=== PATIENT | female | born 1960 | race Caucasian/White ===

== ENCOUNTER 2017-07-29 10:10 | Emergency (ER) | payer OTHER ==
[2017-07-29 11:37] LABS: BASO % 0.5 % (0.0-1.0); EOS # 0.2 10^3/uL (0.0-0.50); EOS % 3.1 % (0.0-3.0); IMMATURE GRANULOCYTE % 0.2 % (0-3.0); LYMPH # 2.3 10^3/uL (1.5-4.5); LYMPH % 35.1 % (24.0-44.0); MEAN CORPUSCULAR HEMOGLOBIN 29.3 pg (27.0-33.0); MEAN CORPUSCULAR HGB CONC 33.3 g/dl (32.0-36.5); MEAN CORPUSCULAR VOLUME 87.9 fl (80.0-96.0); MONO # 0.5 10^3/uL (0.0-0.8); MONO % 7.8 % (0.0-5.0); NEUTROPHILS # 3.5 10^3/uL (1.8-7.7); NEUTROPHILS % 53.3 % (36.0-66.0); PLATELET COUNT, AUTOMATED 227 10^3/uL (150-450); RED BLOOD COUNT 4.78 10^6/uL (4.00-5.40); RED CELL DISTRIBUTION WIDTH 12.5 % (11.5-14.5); WHITE BLOOD COUNT 6.5 10^3/uL (4.0-10.0)
[2017-07-29 11:57] LABS: PARTIAL THROMBOPLASTIN TIME 27.7 SECONDS (26.8-37.9); PROTHROMBIN TIME 12.2 SECONDS (12.4-14.5)
[2017-07-29 12:00] LABS: ANION GAP 6 MEQ/L (8-16); BLOOD UREA NITROGEN 17 MG/DL (7-18); CALCIUM LEVEL 9.4 MG/DL (8.5-10.1); CARBON DIOXIDE LEVEL 26 MEQ/L (21-32); CHLORIDE LEVEL 108 MEQ/L (98-107); CK-MB VALUE MASS 1.1 NG/ML (<3.6); CPK CREATINE PHOSPHOKINASE 115 U/L (26-192); GLOMERULAR FILTRATION RATE > 60.0 (>51); GLUCOSE, FASTING 95 MG/DL (70-100); MB/CK RELATIVE INDEX 0.95 (< OR =4); SODIUM LEVEL 140 MEQ/L (136-145); TROPONIN I < 0.02 NG/ML (< 0.10)
[2017-07-29] MEDS: NS 500 ML IV (12:22)
[2017-07-29] MEDS: KETOROLAC 30 MG/ML VIAL (J1885) IV (14:24)
[2017-07-29] MEDS: FIORICET TAB PO (14:25)
== END 2017-07-29 15:10 | disposition home or self-care (01) ==
LOC: M ED 10:10
DX: R20.0 Anesthesia of skin (principal); R51 Headache; R29.810 Facial weakness; E78.5 Hyperlipidemia, unspecified; Z82.3 Family history of stroke
CPT/HCPCS: J1885

== ENCOUNTER → 2018-07-07 | Outpatient (CLI) | payer OTHER ==
[~2018-07-07] MED LIST: ASPI81TA85 PO; FIORCAP3 PO; MULT200T7 PO; PROBCAP4 PO; SING10TA32 PO
--- NOTE | 2018-07-07 18:00 | REPMRS ---
Patient History The patient states she has not had a clinical breast exam in over a year. Patient is postmenopausal and is nulliparous. Family history of breast cancer at age 45 in maternal aunt, breast cancer at age 65 in paternal grandmother, prostate cancer at age 45 in father. No Hormone Replacement Therapy Digital Mammo Screening Bilat: July 07, 2018 - Exam #: [id number] Bilateral CC and MLO view(s) were taken. Technologist: Lucretia Carrillo, Technologist Prior study comparison: December 01, 2016, bilateral digital mammo screening bilat, performed at [facility]. October 04, 2014, bilateral digital woman screen mammo, performed at [facility]. July 25, 2012, bilateral digital woman screen mammo, performed at [facility]. FINDINGS: There are scattered fibroglandular densities. There is a moderate amount of residual fibroglandular tissue which is fairly symmetric. There is no interval development of dominant mass, architectural distortion, or clustered microcalcification typical of malignancy. There has been no change in the appearance of the mammogram from the prior studies. Assessment: BI-RADS/ACR category 1 mammogram. Negative Mammogram. Recommendation Breast MRI of both breasts in 6 months. Routine screening mammogram of both breasts in 1 year (for women over age 40). This patient's Lifetime Breast Cancer RIsk is estimated at 20.1 %. Annual screening Breast MRI scanniing is recommended for patient's whose lifetime risk assessment is over 20%. This mammogram was interpreted with the aid of an FDA-approved computer-aided dectection system. Electronically Signed By: Akin Hackett MD 07/07/18 1800
== END ==
LOC: M RAD 15:50
PROVIDERS: ATTEND Family Medicine
DX: Z12.31 Encounter for screening mammogram for malignant neoplasm of breast (principal)

== ENCOUNTER → 2018-12-05 | Outpatient (REF) | payer OTHER | LOC: M LAB REF 11:31 | PROVIDERS: ATTEND Physician Assistant | DX: N39.0 Urinary tract infection, site not specified (principal) ==

== ENCOUNTER → 2020-04-25 | Outpatient (CLI) | payer OTHER ==
[~2020-04-25] MED LIST changes: -ASPI81TA85 PO; +ASPI81TA86 PO; +ISOVUE-370 76% 100ML VIAL As Ordered ONE
--- NOTE | 2020-04-25 16:42 | REPVR ---
PROCEDURE INFORMATION: Exam: CT Neck With Contrast Exam date and time: 04/25/2020 4:18 PM Age: 59 years old Clinical indication: Mass, lump, or swelling in neck; Additional info: Lt side submandibular swelling ? stone TECHNIQUE: Imaging protocol: Computed tomography images of the neck with intravenous contrast. Radiation optimization: All CT scans at this facility use at least one of these dose optimization techniques: automated exposure control; mA and/or kV adjustment per patient size (includes targeted exams where dose is matched to clinical indication); or iterative reconstruction. Contrast material: ISOVUE 370; Contrast volume: 75 ml; Contrast route: INTRAVENOUS (IV); COMPARISON: CT C-SPINE W/O CONTRAST - OUTSIDE PRIOR 01/23/2016 2:05 PM FINDINGS: Nasopharynx: Unremarkable. Oropharynx: Unremarkable. No significant tonsillar enlargement. Hypopharynx: Unremarkable. Larynx: Unremarkable. Normal epiglottis. Retropharyngeal space: Unremarkable. Submandibular/Parotid glands: There is a 9 mm calculus in the course of left submandibular duct. The left submandibular duct is slightly increased in size and heterogenous with minimal fat stranding. Thyroid: 2 cm heterogenous nodule in the right thyroid lobe. Lymph nodes: Unremarkable. No lymphadenopathy. Trachea: Visualized trachea is unremarkable. Lungs: Unremarkable as visualized. Bones/joints: Unremarkable. No acute fracture. Soft tissues: Unremarkable. No significant soft tissue swelling. IMPRESSION: Calculus measuring 9 mm in the left submandibular duct with mild enlargement of the left submandibular gland and fat stranding. Findings suggesting superimposed inflammation/infection. Nodule in the right thyroid gland measuring 2 cm. Nonemergent ultrasound can be obtained for further evaluation. COMMENTS: Consistent with the [employer]'s Incidental Findings Committee white paper (J Am Dre Radiol 2015): In patients aged 35 years and older with an incidental thyroid nodule equal to or greater than 1.[address], MRI or extrathyroidal US, further evaluation with dedicated thyroid US is recommended for patients with normal life expectancy and without comorbidities. For smaller nodules without suspicious features, no further evaluation or follow up is recommended. Electronically signed by: Joe Delgado On 04/25/2020 16:42:12 PM
== END ==
LOC: M RAD 15:50
PROVIDERS: ATTEND Family Medicine
DX: K11.5 Sialolithiasis (principal); E04.2 Nontoxic multinodular goiter
CPT/HCPCS: 70491; Q9967

== ENCOUNTER → 2020-04-29 | Outpatient (CLI) | payer OTHER ==
[~2020-04-29] MED LIST changes: -ISOVUE-370 76% 100ML VIAL As Ordered ONE
--- NOTE | 2020-04-29 12:15 | REP ---
INDICATION: nontoxic single thyroid nodule. COMPARISON: CT 04/25/2020. TECHNIQUE: Real-time sonographic evaluation of thyroid performed. FINDINGS: Right lobe of the thyroid is mildly larger than left. Right lobe measures 5.1 x 2.2 x 1.7 cm and left lobe 4.1 x 1.6 x 1.4 cm. In the mid right lobe there is a solid nodule 1.4 x 1.8 x 1.7 cm. This is heterogeneous and slightly increased in echotexture. Two subcentimeter nodules are seen in the mid left lobe measuring 5 x 3 x 4 mm and 7 x 4 x 7 mm. IMPRESSION: Solid nodule right lobe of thyroid maximum diameter 1.8 cm. According to TI-RADS criteria this is a TR 3 lesion, and follow-up ultrasound is recommended in 6 months. <Electronically signed by Armani Fernández > 04/29/20 1215
== END ==
LOC: M RAD 11:38
PROVIDERS: ATTEND Specialist
DX: E04.1 Nontoxic single thyroid nodule (principal)

== ENCOUNTER → 2020-06-04 | Outpatient (CLI) | payer OTHER ==
[~2020-06-04] MED LIST changes: +B-12100021 PO; +CLAR5TAB11 PO; +CLIN300C6; +D31000TA2 PO; +LIDOCAINE 1% MDV 20ML VIAL As Ordered ONE; +SODIUM BICARBONATE 8.4% INJ 50MEQ 50 ML VIAL As Ordered ONE
[2020-06-04 11:00] VITALS: BP 128/76
--- NOTE | 2020-06-04 13:23 | REP ---
INDICATION: RT THYROID NODULE. COMPARISON: None. TECHNIQUE: The procedure was performed by ANIKA Alvarez, under the direct supervision of Dr. Fernández. The risks and benefits of the procedure were explained to the patient and an informed consent was obtained both verbally and written. Directly prior to the start of the procedure a formal time-out was completed in the procedure room. The right thyroid nodule was localized using ultrasound guidance. The skin was prepped and draped in a sterile fashion. Three mL of buffered lidocaine was used as a local anesthetic. Using ultrasound guidance a 4 fine needle aspirations were obtained using 25 gauge needles. FINDINGS: The patient tolerated the procedure well and there were no immediate complications. After the appropriate amount of monitored convalescence the patient was discharged from the department. IMPRESSION: Ultrasound-guided right thyroid nodule fine needle aspiration. <Electronically signed by Estela Lyons > 06/04/20 1303 <Electronically signed by Armani Fernández > 06/04/20 1324
== END ==
LOC: M IRPRO 09:52
PROVIDERS: ATTEND Specialist
DX: E04.1 Nontoxic single thyroid nodule (principal)

== ENCOUNTER 2020-07-16 10:31 | Day surgery (SDC) | payer OTHER ==
[~2020-07-16] VITALS: Ht 163.8 cm; Wt 84.1 kg
[~2020-07-16 10:31] MED LIST changes: +B COCAP4 PO; +CALC0.009 TOP; +CLOB5CR TOP; +CVS1CAP2 PO; +ESTR62CR VG; +IBUP80TA PO; -LIDOCAINE 1% MDV 20ML VIAL As Ordered ONE; +LIDOCAINE 2% 100MG/5ML SDV (FOR ANES.) As Ordered ONE; +LR 1,000 ML IV ONE; +MIDAZOLAM INJ 2MG/2ML VIAL (J2250 PER 1MG) As Ordered ONE; +MUCI30TA5 PO; +ROCURONIUM BROMIDE 50 MG/5 ML VIAL As Ordered ONE; -SODIUM BICARBONATE 8.4% INJ 50MEQ 50 ML VIAL As Ordered ONE; +fentaNYL 100 MCG/2 ML INJECTION (J3010) As Ordered ONE; +propofoL 200 MG/20 ML VIAL As Ordered ONE
[2020-07-16] MEDS ORDERED: LIDOCAINE W/EPINEPHRINE 1% 20ML VIAL As Ordered ONE (12:17)
[2020-07-16] MEDS ORDERED: ePHEDrine SULFATE 25 MG/5 ML(5MG/ML) SYRINGE As Ordered ONE (12:53)
[2020-07-16] MEDS ORDERED: ACETAMINOPHEN 1000MG 100ML IV BTL (OFIRMEV) (J0131 PER 10MG) As Ordered ONE (13:08)
[2020-07-16] MEDS ORDERED: ONDANSETRON 4MG/2ML VIAL As Ordered ONE (13:10)
[2020-07-16] MEDS ORDERED: METOCLOPRAMIDE INJ 10MG/2ML VIAL (J2765 PER 1) As Ordered ONE (13:10)
[2020-07-16] MEDS ORDERED: SUGAMMADEX SODIUM 500 MG/5 ML VIAL (BRIDION) As Ordered ONE (13:12)
[2020-07-16] MEDS ORDERED: fentaNYL 100 MCG/2 ML INJECTION (J3010) As Ordered ONE (13:20)
[2020-07-16] MEDS ORDERED: BACITRACIN OINTMENT 30GM TUBE As Ordered ONE (13:36)
[2020-07-16] MEDS ORDERED: ACET1TAB16 PO (13:41)
[2020-07-16] MEDS ORDERED: oxyCODONE 5MG TAB PO PRN (14:05)
[2020-07-16] MEDS ORDERED: IBUPROFEN 800 MG TAB PO PRN (14:05)
[2020-07-16] MEDS ORDERED: PERCOCET 5MG/325MG TAB PO PRN (14:05)
[2020-07-16] MEDS ORDERED: fentaNYL 100 MCG/2 ML INJECTION (J3010) IV PRN (14:05)
[2020-07-16] MEDS ORDERED: LR 1,000 ML IV SCH (14:05)
[2020-07-16] MEDS ORDERED: ONDANSETRON 4MG/2ML VIAL IV PRN (14:05)
[2020-07-16 17:05] VITALS: BP 150/77
--- NOTE | 2020-07-16 20:35 | ECGEPIP ---
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
--- NOTE | 2020-07-17 13:53 | RO ---
OPERATIVE NOTE DATE OF OPERATION: 07/16/2020 PREOPERATIVE DIAGNOSIS: Chronic left submandibular sialadenitis. POSTOPERATIVE DIAGNOSIS: Chronic left submandibular sialadenitis. PROCEDURE: Left submandibular gland resection. SURGEON: Albin Atrhur MD ASSISTANTS: Sarmad Olmos MD, NOE Davis FINDINGS: There were stones which were removed at the time of the surgery. ANESTHESIA: General. DESCRIPTION OF PROCEDURE: Under general anesthesia with the patient intubated, the patient was prepped and draped in the usual manner. I marked out the incision beneath the mandible. I divided skin and subcutaneous tissues and platysma. I then went down to the submandibular gland inferiorly and elevated the tissues out of the submandibular gland. There was a lot of scarring, so using sharp and blunt dissection, I dissected around the gland inferiorly. I used the Harmonic scalpel. I the gland from the facial artery and then I divided the branch which goes from the facial artery to the gland. Then I dissected around the gland identifying the mylohyoid muscle. Posteriorly I could feel the stones. I made an incision and removed the stones. I then went completely around. I identified the lingual nerve. I went distal to this. It was all scar tissue in this area. I divided the tissues with the Harmonic scalpel. Then I put a clamp at the area of the submandibular duct. This was tied off with 3-0 silk. The area was irrigated. There was no bleeding. Less than 20 mL estimated blood loss. I put Surgicel in the wound and closed the wound with 4-0 Vicryl and 5-0 nylon. The patient was extubated and transferred to recovery room in excellent condition. %%CCLIST%%
== END 2020-07-16 17:05 | disposition home or self-care (01) ==
LOC: M SDC 10:31
PROVIDERS: ATTEND Specialist
DX: K11.23 Chronic sialoadenitis (principal); K21.9 Gastro-esophageal reflux disease without esophagitis; Z79.899 Other long term (current) drug therapy; Z91.018 Allergy to other foods; Z88.1 Allergy status to other antibiotic agents; Z91.013 Allergy to seafood
CPT/HCPCS: 42440; 88307; 93005; J0131; J2250; J2405; J2765; J3010

== ENCOUNTER → 2020-08-01 | Outpatient (REF) | payer OTHER ==
[~2020-08-01] MED LIST changes: +ACET1TAB16 PO; -LIDOCAINE 2% 100MG/5ML SDV (FOR ANES.) As Ordered ONE; -LR 1,000 ML IV ONE; -MIDAZOLAM INJ 2MG/2ML VIAL (J2250 PER 1MG) As Ordered ONE; -ROCURONIUM BROMIDE 50 MG/5 ML VIAL As Ordered ONE; -fentaNYL 100 MCG/2 ML INJECTION (J3010) As Ordered ONE; -propofoL 200 MG/20 ML VIAL As Ordered ONE
[2020-08-01 20:02] LABS: CLOSTRIDIUM DIFFICILE PCR POSITIVE (NEGATIVE)
== END ==
LOC: M LAB REF 19:05
PROVIDERS: ATTEND Specialist
DX: R19.7 Diarrhea, unspecified (principal)

== ENCOUNTER → 2020-11-07 | Outpatient (CLI) | payer OTHER ==
--- NOTE | 2020-11-07 13:13 | REP ---
INDICATION: GOITER. COMPARISON: 04/29/2020 TECHNIQUE: Multiple ultrasonographic images of the thyroid. FINDINGS: The thyroid right lobe measures 4.7 x 2.8 x 1.9 cm. Left lobe measures 4.0 x 1.5 x 1.5 cm. The thyroid isthmus measures 3 mm thickness. The thyroid gland is normal size and not significantly changed. Right lobe: In the lower pole there is a solid nodule measuring 2.4 x 1.6 x 1.9 cm, not significantly changed. Left lobe: There are 2 solid nodules in the lower pole as previously. One nodule measures 6 x 4 x 4 mm. The other nodule measures 7 x 3 x 5 mm. These have not significantly changed in size. The thyroid parenchyma is otherwise mildly heterogeneous, unchanged. IMPRESSION: There is no significant interval change. <Electronically signed by Armani Jain > 11/07/20 7022
== END ==
LOC: M RAD 12:16
PROVIDERS: ATTEND Specialist
DX: E04.1 Nontoxic single thyroid nodule (principal)

== ENCOUNTER → 2022-07-03 | Outpatient (CLI) | payer OTHER ==
[~2022-07-03] MED LIST changes: -ACET1TAB16 PO; +ACET300T48 PO; +CLIN-250; -CLIN300C6; -D31000TA2 PO; +MONT-5 PO; -SING10TA32 PO; +VITA100093 PO
== END ==
LOC: M RAD 18:27
PROVIDERS: ATTEND Student in an Organized Health Care Education/Training Program
DX: N20.0 Calculus of kidney (principal); M48.061 Spinal stenosis, lumbar region without neurogenic claudication

== ENCOUNTER → 2022-10-16 | Outpatient (CLI) | payer OTHER ==
[~2022-10-16] MED LIST changes: +PROHANCE 279.3MG/ML 15ML VIAL ONE; +PROHANCE 279.3MG/ML 5ML VIAL ONE
== END ==
LOC: M PLAIMG 07:41
PROVIDERS: ATTEND Student in an Organized Health Care Education/Training Program
DX: Z15.01 Genetic susceptibility to malignant neoplasm of breast (principal)
CPT/HCPCS: A9576; C8908

== ENCOUNTER 2022-12-10 11:19 | Day surgery (SDC) | payer OTHER ==
[~2022-12-10] VITALS: Ht 162.6 cm; Wt 87.5 kg
[~2022-12-10 11:19] MED LIST changes: +LIDOCAINE 2% 100MG/5ML SDV (FOR ANES.) As Ordered ONE; +NS 1,000 ML IV ONE; -PROHANCE 279.3MG/ML 15ML VIAL ONE; -PROHANCE 279.3MG/ML 5ML VIAL ONE; +SENN-83 PO; +propofoL 200 MG/20 ML VIAL As Ordered ONE
[2022-12-10] MEDS ORDERED: fentaNYL 100 MCG/2 ML INJECTION As Ordered ONE (12:43)
[2022-12-10] MEDS ORDERED: GLYCOPYRROLATE INJ 0.2 MG/ML 2 ML VIAL As Ordered ONE (13:04)
[2022-12-10 13:29] VITALS: TEMP 96
[2022-12-10 13:54] VITALS: BP 140/73; O2SAT 98
== END 2022-12-10 14:16 | disposition home or self-care (01) ==
LOC: M OPP 11:19
PROVIDERS: ATTEND Internal Medicine Gastroenterology
DX: K58.1 Irritable bowel syndrome with constipation (principal); K63.5 Polyp of colon; K57.30 Diverticulosis of large intestine without perforation or abscess without bleeding; K64.8 Other hemorrhoids; K21.9 Gastro-esophageal reflux disease without esophagitis; F41.9 Anxiety disorder, unspecified; F32.A Depression, unspecified; J45.909 Unspecified asthma, uncomplicated; E04.1 Nontoxic single thyroid nodule; Z85.820 Personal history of malignant melanoma of skin; Z92.21 Personal history of antineoplastic chemotherapy; Z88.1 Allergy status to other antibiotic agents; Z91.013 Allergy to seafood; Z91.018 Allergy to other foods; Z79.899 Other long term (current) drug therapy; Z86.19 Personal history of other infectious and parasitic diseases
CPT/HCPCS: 43235; 45385; 88305; J3010

== ENCOUNTER 2023-03-14 19:08 | Emergency (ER) | payer OTHER ==
[~2023-03-14] VITALS: Ht 162.6 cm; Wt 90.0 kg
[~2023-03-14 19:08] MED LIST changes: -LIDOCAINE 2% 100MG/5ML SDV (FOR ANES.) As Ordered ONE; -NS 1,000 ML IV ONE; -propofoL 200 MG/20 ML VIAL As Ordered ONE
[2023-03-14 19:59] LABS: BASO % 0.5 % (0.0-1.0); EOS # 0.4 10^3/uL (0.0-0.5); EOS % 4.3 % (0.0-3.0); HEMATOCRIT 38.9 % (36.0-47.0); HEMOGLOBIN 12.9 g/dl (12.0-15.5); LYMPH # 3.3 10^3/uL (1.5-5.0); LYMPH % 36.9 % (24.0-44.0); MEAN CORPUSCULAR HEMOGLOBIN 29.9 pg (27.0-33.0); MEAN CORPUSCULAR HGB CONC 33.2 g/dl (32.0-36.5); MEAN CORPUSCULAR VOLUME 90.3 fl (80.0-96.0); MONO # 0.7 10^3/uL (0.0-0.8); NEUTROPHILS # 4.5 10^3/uL (1.5-8.5); NEUTROPHILS % 50.1 % (36.0-66.0); PLATELET COUNT, AUTOMATED 239 10^3/uL (150-450); RED BLOOD COUNT 4.31 10^6/uL (4.00-5.40); WHITE BLOOD COUNT 8.9 10^3/uL (4.0-10.0)
[2023-03-14 20:20] LABS: CK-MB VALUE MASS < 1.0 NG/ML (<3.6)
[2023-03-14] MEDS ORDERED: NITROGLYCERIN 0.4MG SUBL TABLET SL PRN (20:20)
[2023-03-14] MEDS ORDERED: ASPIRIN 81MG CHEW TABLET PO ONE (20:20)
[2023-03-14 20:21] VITALS: BP 180/84
[2023-03-14 20:21] LABS: CPK CREATINE PHOSPHOKINASE 156 U/L (34-145); MB/CK RELATIVE INDEX 0.64 (< OR =4)
[2023-03-14 20:22] LABS: BLOOD UREA NITROGEN 15 MG/DL (9-23); CALCIUM LEVEL 9.7 MG/DL (8.3-10.6); CARBON DIOXIDE LEVEL 25 MMOL/L (20-31); CHLORIDE LEVEL 110 MMOL/L (98-107); CREATININE FOR GFR 1.01 MG/DL (0.55-1.30); GLOMERULAR FILTRATION RATE 59.3 (>45); GLUCOSE, FASTING 94 MG/DL (74-106); SODIUM LEVEL 141 MMOL/L (136-145)
[2023-03-14 20:36] LABS: LIPASE 30 U/L (12-53)
[2023-03-14 20:38] LABS: ALBUMIN 4.1 G/DL (3.2-5.2); ALKALINE PHOSPHATASE 89 U/L (46-116); ALT/SGPT 33 U/L (7.0-40); AST/SGOT 17 U/L (<34); BILIRUBIN,DIRECT < 0.1 MG/DL (<0.4); BILIRUBIN,TOTAL 0.2 MG/DL (0.3-1.2)
[2023-03-14 21:00] VITALS: TEMP 98.4
[2023-03-14 21:16] LABS: CK-MB VALUE MASS < 1.0 NG/ML (<3.6)
[2023-03-14 21:18] LABS: CPK CREATINE PHOSPHOKINASE 155 U/L (34-145); MB/CK RELATIVE INDEX 0.64 (< OR =4)
[2023-03-14] MEDS ORDERED: ISOVUE-370 76% 100ML VIAL As Ordered ONE (21:22)
[2023-03-14 23:00] VITALS: BP 134/78; O2SAT 95
[2023-03-14 23:04] LABS: FREE T4 0.93 NG/DL (0.89-1.76); THYROID STIMULATING HORMONE 2.623 uIU/ML (0.55-4.78)
== END 2023-03-14 23:10 | disposition home or self-care (01) ==
LOC: M ED 19:08
DX: R07.9 Chest pain, unspecified (principal); K21.9 Gastro-esophageal reflux disease without esophagitis; J45.909 Unspecified asthma, uncomplicated; F41.9 Anxiety disorder, unspecified; Z88.1 Allergy status to other antibiotic agents; Z91.013 Allergy to seafood; Z91.02 Food additives allergy status; Z79.52 Long term (current) use of systemic steroids; Z79.899 Other long term (current) drug therapy
CPT/HCPCS: 36415; 71045; 71275; 74174; 80048; 80076; 82550; 82553; 83690; 83880; 84439; 84443; 84484; 85025; 87486; 87581; 87633; 87798; 93005; 93041; 94760; 99284; Q9967

== ENCOUNTER → 2023-04-01 | Outpatient (REF) | payer OTHER | LOC: M PLALAB 11:44 | PROVIDERS: ATTEND Nurse Practitioner Family | DX: Z12.4 Encounter for screening for malignant neoplasm of cervix (principal) | CPT/HCPCS: 87624; G0123; G0463 ==

== ENCOUNTER → 2023-04-07 | Outpatient (CLI) | payer OTHER | LOC: M RAD 08:12 | PROVIDERS: ATTEND Internal Medicine | DX: R10.9 Unspecified abdominal pain (principal) | CPT/HCPCS: 78264; A9541 ==

== ENCOUNTER → 2023-04-28 | Outpatient (CLI) | payer OTHER | LOC: M CARPUL 14:14 | PROVIDERS: ATTEND Internal Medicine | DX: R01.1 Cardiac murmur, unspecified (principal); I70.0 Atherosclerosis of aorta ==

== ENCOUNTER → 2023-05-06 | Outpatient (REF) | payer OTHER ==
[2023-05-06 14:06] LABS: APPEARANCE, URINE CLEAR (CLEAR); BACTERIA, URINE AUTO NEGATIVE (NEGATIVE); BILIRUBIN, URINE AUTO NEGATIVE (NEGATIVE); BLOOD, URINE BLOOD NEGATIVE (NEGATIVE); COLOR, URINE YELLOW (YELLOW); GLUCOSE, URINE (UA) AUTO NEGATIVE (NEGATIVE); KETONE, URINE AUTO NEGATIVE (NEGATIVE); LEUKOCYTE ESTERASE, URINE AUTO NEGATIVE (NEGATIVE); NITRITE, URINE AUTO NEGATIVE (NEGATIVE); PROTEIN, URINE AUTO NEGATIVE (NEGATIVE); RBC, URINE AUTO 1 /HPF (0-3); SPECIFIC GRAVITY URINE AUTO 1.013 (1.002-1.035); SQUAMOUS EPITHELIAL CELL UR AU 0 /HPF (0-6); UROBILINOGEN, URINE AUTO 0.2 mg/dL (0.0-2.0); WBC, URINE AUTO 1 /HPF (0-3)
== END ==
LOC: M SMT 13:14
PROVIDERS: ATTEND Physician Assistant
DX: N30.90 Cystitis, unspecified without hematuria (principal)

== ENCOUNTER → 2023-05-13 | Outpatient (REF) | payer OTHER ==
[~2023-05-13] MED LIST changes: +CALC0.0017 TOP; -CALC0.009 TOP
== END ==
LOC: M PLALAB 14:49
PROVIDERS: ATTEND Advanced Practice Midwife
DX: N84.1 Polyp of cervix uteri (principal)

== ENCOUNTER → 2023-11-24 | Outpatient (CLI) | payer OTHER ==
[~2023-11-24] MED LIST changes: +LIDOCAINE 1% MDV 20ML VIAL As Ordered ONE
[2023-11-24 12:15] VITALS: TEMP 97.4
[2023-11-24 13:21] VITALS: BP 158/82; O2SAT 98
== END ==
LOC: M IRPRO 11:55
PROVIDERS: ATTEND Student in an Organized Health Care Education/Training Program
DX: R61 Generalized hyperhidrosis (principal)

== ENCOUNTER 2024-04-26 20:38 | Emergency (ER) | payer OTHER ==
[~2024-04-26] VITALS: Ht 162.6 cm; Wt 92.7 kg
[~2024-04-26 20:38] MED LIST changes: -LIDOCAINE 1% MDV 20ML VIAL As Ordered ONE; -MULT200T7 PO; +MULT200T9 PO; +SENN-187 PO; -SENN-83 PO
[2024-04-26 20:42] VITALS: BP 155/82; TEMP 97.5; O2SAT 98
[2024-04-26 21:59] LABS: BASO % 0.5 % (0.0-1.0); EOS # 0.3 10^3/uL (0.0-0.5); EOS % 3.8 % (0.0-3.0); HEMATOCRIT 38.7 % (36.0-47.0); HEMOGLOBIN 12.9 g/dl (12.0-15.5); LYMPH # 2.7 10^3/uL (1.5-5.0); LYMPH % 31.3 % (24.0-44.0); MEAN CORPUSCULAR HEMOGLOBIN 29.7 pg (27.0-33.0); MEAN CORPUSCULAR HGB CONC 33.3 g/dl (32.0-36.5); MEAN CORPUSCULAR VOLUME 89.2 fl (80.0-96.0); MONO # 0.8 10^3/uL (0.0-0.8); MONO % 9.5 % (2.0-8.0); NEUTROPHILS # 4.6 10^3/uL (1.5-8.5); NEUTROPHILS % 54.7 % (36.0-66.0); PLATELET COUNT, AUTOMATED 230 10^3/uL (150-450); RED BLOOD COUNT 4.34 10^6/uL (4.00-5.40); WHITE BLOOD COUNT 8.5 10^3/uL (4.0-10.0)
[2024-04-26 22:14] LABS: KETONE, URINE AUTO RFX NEGATIVE (NEGATIVE); MUCUS, URINE RFX SMALL (NEGATIVE); NITRITE, URINE AUTO RFX NEGATIVE (NEGATIVE); RBC, URINE AUTO RFX TNTC /HPF (0-3); SQUAM EPITHELIAL CELL UR AURFX 2 /HPF (0-6)
[2024-04-26 22:24] LABS: LEUKOCYTE ESTERASE UR AUTO RFX 1+ (NEGATIVE); WBC, URINE AUTO RFX 38 /HPF (0-3)
[2024-04-26 22:28] LABS: LIPASE 34 U/L (12-53)
[2024-04-26 22:31] LABS: ALBUMIN 3.9 G/DL (3.2-5.2); ALKALINE PHOSPHATASE 103 U/L (35-104); ALT/SGPT 31 U/L (7.0-40); AST/SGOT 15 U/L (<34); BILIRUBIN,DIRECT < 0.1 MG/DL (<0.4); BILIRUBIN,TOTAL 0.2 MG/DL (0.3-1.2); BLOOD UREA NITROGEN 23 MG/DL (9-23); CALCIUM LEVEL 9.4 MG/DL (8.3-10.6); CARBON DIOXIDE LEVEL 26 MMOL/L (20-31); CHLORIDE LEVEL 105 MMOL/L (98-107); CREATININE FOR GFR 0.93 MG/DL (0.55-1.30); GLOMERULAR FILTRATION RATE > 60.0 (>45); GLUCOSE, FASTING 139 MG/DL (74-106); POTASSIUM SERUM 4.1 MMOL/L (3.5-5.1); SODIUM LEVEL 144 MMOL/L (136-145); TOTAL PROTEIN 6.9 G/DL (5.7-8.2)
== END 2024-04-27 02:03 | disposition home or self-care (01) ==
LOC: M ED 20:38
DX: N20.1 Calculus of ureter (principal); Z91.013 Allergy to seafood; Z88.1 Allergy status to other antibiotic agents; Z91.018 Allergy to other foods; Z79.899 Other long term (current) drug therapy
CPT/HCPCS: 36415; 74176; 80048; 80076; 81001; 83690; 85025; 87086; 99282; G0463

== ENCOUNTER → 2024-05-10 | Outpatient (CLI) | payer OTHER | LOC: M RAD 10:59 | PROVIDERS: ATTEND Otolaryngology | DX: E04.2 Nontoxic multinodular goiter (principal) ==

== ENCOUNTER → 2024-05-16 | Outpatient (CLI) | payer OTHER | LOC: M RAD 16:56 | PROVIDERS: ATTEND Student in an Organized Health Care Education/Training Program | DX: R31.9 Hematuria, unspecified (principal); K76.0 Fatty (change of) liver, not elsewhere classified; K57.30 Diverticulosis of large intestine without perforation or abscess without bleeding; K56.41 Fecal impaction ==

== ENCOUNTER → 2024-05-25 | Outpatient (REF) | payer OTHER ==
[2024-05-25 13:43] LABS: AMORPHOUS SEDIMENT SMALL (NEGATIVE); APPEARANCE, URINE TURBID (CLEAR); BACTERIA, URINE AUTO NEGATIVE (NEGATIVE); BILIRUBIN, URINE AUTO NEGATIVE (NEGATIVE); BLOOD, URINE BLOOD NEGATIVE (NEGATIVE); COLOR, URINE YELLOW (YELLOW); GLUCOSE, URINE (UA) AUTO NEGATIVE (NEGATIVE); KETONE, URINE AUTO NEGATIVE (NEGATIVE); LEUKOCYTE ESTERASE, URINE AUTO TRACE (NEGATIVE); NITRITE, URINE AUTO NEGATIVE (NEGATIVE); PROTEIN, URINE AUTO NEGATIVE (NEGATIVE); RBC, URINE AUTO 0 /HPF (0-3); SPECIFIC GRAVITY URINE AUTO 1.024 (1.002-1.035); SQUAMOUS EPITHELIAL CELL UR AU 0 /HPF (0-6); UROBILINOGEN, URINE AUTO 0.2 mg/dL (0.0-2.0); WBC, URINE AUTO 6 /HPF (0-3)
== END ==
LOC: M SMT 12:31
PROVIDERS: ATTEND Physician Assistant
DX: R31.0 Gross hematuria (principal); R82.89 Other abnormal findings on cytological and histological examination of urine
CPT/HCPCS: 81001; 88108; G0463

== ENCOUNTER 2024-06-17 06:06 | Emergency (ER) | payer OTHER ==
[~2024-06-17] VITALS: Ht 162.6 cm; Wt 88.5 kg
[2024-06-17] MEDS: predniSONE 20 MG TAB PO ONE (09:51)
[2024-06-17] MEDS: IPRATROPIUM 0.5MG/ALBUTEROL 2.5MG INH SOL UD 3ML (DUONEB) NEB ONE (10:01)
[2024-06-17] MEDS ORDERED: ALBU2.5V10 NEB (10:24)
[2024-06-17] MEDS ORDERED: PRED10TA2 PO (10:24)
[2024-06-17] MEDS ORDERED: BENZ200C70 PO (10:24)
[2024-06-17] MEDS ORDERED: NEBU1EAC78 MC (10:24)
[2024-06-17 10:45] VITALS: BP 147/76; O2SAT 93
[2024-06-17 10:54] VITALS: TEMP 100.8
== END 2024-06-17 10:56 | disposition home or self-care (01) ==
LOC: M ED 06:06
DX: J06.9 Acute upper respiratory infection, unspecified (principal); B97.81 Human metapneumovirus as the cause of diseases classified elsewhere; G47.33 Obstructive sleep apnea (adult) (pediatric); J45.909 Unspecified asthma, uncomplicated; Z88.1 Allergy status to other antibiotic agents; Z91.013 Allergy to seafood; Z91.018 Allergy to other foods; Z79.52 Long term (current) use of systemic steroids; Z79.899 Other long term (current) drug therapy
CPT/HCPCS: 71046; 87486; 87581; 87633; 87798; 94640; 99284; J7512

== ENCOUNTER → 2024-11-29 | Outpatient (CLI) | payer OTHER ==
[~2024-11-29] MED LIST changes: +ALBU2.5V10 NEB; +BENZ200C70 PO; +NEBU1EAC78 MC; +PRED10TA2 PO
== END ==
LOC: M CARPUL 07:52
PROVIDERS: ATTEND Student in an Organized Health Care Education/Training Program
DX: J45.909 Unspecified asthma, uncomplicated (principal)

== ENCOUNTER → 2024-11-29 | Outpatient (CLI) | payer OTHER ==
[2024-11-29 09:03] LABS: CHOLESTEROL LEVEL 143.0 MG/DL (<200); CHOLESTEROL RISK RATIO 2.72 (<5); LDL CHOLESTEROL 57.0 MG/DL (<100); NON-HDL-C 90.6 MG/DL; TRIGLYCERIDES LEVEL 168.0 MG/DL (<150)
== END ==
LOC: M LAB 07:48
PROVIDERS: ATTEND Internal Medicine Cardiovascular Disease
DX: E78.5 Hyperlipidemia, unspecified (principal)

== ENCOUNTER → 2024-12-01 | Outpatient (CLI) | payer OTHER | LOC: M RAD 07:14 | PROVIDERS: ATTEND Otolaryngology | DX: E04.2 Nontoxic multinodular goiter (principal) ==